=== PATIENT | female | born 2000 | race Caucasian/White ===

== ENCOUNTER 2021-02-09 15:25 | Observation (INO) | payer OTHER ==
[2021-02-09 16:19] LABS: #Monocytes 0.7 10x3/uL (0.0-1.1); #Neutrophils 14.1 10x3/uL (1.5-8.4); %Basophils 0.1 % (0.0-2.0); %Eosinophils 0.1 % (0.0-6.0); %Lymphocytes 9.3 % (18.0-47.0); %Monocytes 4.3 % (0.0-10.0); %Neutrophils 85.8 % (40.0-75.0); Hemoglobin 12.8 g/dL (12.0-15.5); Mean Corpuscular HGB CONC 33.1 g/dL (32.0-36.0); Mean Corpuscular Hemoglobin 29.8 pg (27.0-33.0); Mean Platelet Volume 10.3 fl (7.4-10.4); Platelet Count 283 10x3/uL (150-450); RBC Distribution Width 12.7 % (11.5-14.5); White Blood Cell (WBC) Count 16.4 10x3/uL (3.5-10.5)
[2021-02-09 16:26] LABS: Bilirubin Neg (Negative); Blood, Urine Negative (Negative); Clarity Clear (Clear); Glucose, Urine (Dipstick) Normal (Negative); Ketone, Urine Negative (Negative); Leukocyte Negative (Negative); Nitrite Negative (Negative); Protein, Urine (Dipstick) Negative (Neg-Trace); Specific Gravity, Urine 1.005 (1.002-1.036); Urobilinogen Normal mg/dL (Less than 2)
[2021-02-09 16:28] LABS: Pregnancy Test - Urine (BHCG) Negative (Negative); Pregu Control Bar Appear? YES (CONTROL BAR); Specific Gravity 1.005 (1.002-1.036)
[2021-02-09 16:29] LABS: Pregu Control Background? CLEAR/WHITE (CLR/WHITE)
[2021-02-09 16:30] LABS: ALT (SGPT) 13 U/L (8-55); AST (SGOT) 16 U/L (5-34); Albumin 4.4 g/dL (3.5-5.0); Alkaline Phosphatase 79 U/L (40-110); Anion Gap 12 mmol/L (10-20); BUN (Urea Nitrogen) 9 mg/dL (7.0-18.7); Bilirubin, Total 0.6 mg/dL (0.2-1.2); Calc. Creatinine Clearance 0 mL/min (70-130); Calcium 9.3 mg/dL (7.8-10.44); Carbon Dioxide 27 mmol/L (22-29); Chloride 101 mmol/L (98-107); Globulin 2.9 g/dL (2.4-3.5); Glucose 126 mg/dL (70-105); Lipase 27 U/L (8-78); Potassium 3.6 mmol/L (3.5-5.1); Protein, Total 7.3 g/dL (6.0-8.3); Sodium 136 mmol/L (136-145)
[2021-02-09] MEDS ORDERED: Ketorolac Tromethamine 30 MG/ML VIAL ONE (17:18)
[2021-02-09] MEDS ORDERED: Fentanyl 100 MCG/2 ML VIAL ONE (18:01)
[2021-02-09] MEDS ORDERED: Ondansetron PF 4 MG/2 ML Vial IVP PRN (19:30)
[2021-02-09] MEDS ORDERED: Ondansetron ODT 4 MG TAB PO PRN (19:31)
[2021-02-09 19:34] VITALS: BMI 18.8
[2021-02-09] MEDS: Sodium Chloride 0.9% 1,000 ML IV SCH (20:03)
[2021-02-09 20:10] LABS: SARS-CoV-2 NAA Rapid Test Not Detected (NotDetected)
[2021-02-09] MEDS: Morphine 4 MG/ML VIAL SLOW IVP PRN (21:44)
[2021-02-10] MEDS: Morphine 4 MG/ML VIAL SLOW IVP PRN ×2 (00:59→04:37)
[2021-02-10] MEDS: Sodium Chloride 0.9% 1,000 ML IV SCH (06:45)
[2021-02-10] MEDS ORDERED: Dextrose 5% in Water 1,000 ML IV PRN (07:44)
[2021-02-10] MEDS ORDERED: Dextrose 50% Abboject 50 ML SYRINGE SLOW IVP PRN (07:44)
[2021-02-10] MEDS ORDERED: Ondansetron PF 4 MG/2 ML Vial IVP PRN (07:44)
[2021-02-10] MEDS ORDERED: D5 1/2 NS w/20 mEq KCL 1,000 ML IV SCH (07:45)
[2021-02-10] MEDS ORDERED: HYDROcodone/Acetaminophen 7.5/325 mg Tablet PO PRN (07:47)
[2021-02-10] MEDS ORDERED: Piperacillin/Tazobactam 3.375 GM in Sodium Chloride 0.9% 100 ML IVPB SCH ×2 (08:00→12:30)
[2021-02-10] MEDS ORDERED: HYDROmorphone 0.5 MG/0.5 ML SYRINGE SLOW IVP SCH (08:00)
[2021-02-10] MEDS ORDERED: EPINEPHrine 1 MG/ML AMP ONE (12:55)
[2021-02-10] MEDS ORDERED: Bupivacaine 0.25% HCL 30 ML VIAL ONE (12:55)
[2021-02-10] MEDS ORDERED: PROPOFOL 20 ML ONE (13:09)
[2021-02-10] MEDS ORDERED: Ketorolac Tromethamine 30 MG/ML VIAL ONE (13:10)
[2021-02-10] MEDS ORDERED: Fentanyl 100 MCG/2 ML VIAL ONE (13:10)
[2021-02-10] MEDS ORDERED: Midazolam HCl 2 mg/2 ml Vial ONE (13:10)
[2021-02-10] MEDS ORDERED: Glycopyrrolate 0.2 MG/ML 5 ML SYRINGE ONE (13:12)
[2021-02-10] MEDS ORDERED: Ondansetron PF 4 MG/2 ML Vial ONE (13:13)
[2021-02-10] MEDS ORDERED: Dexamethasone 4 mg/ml Vial ONE (13:13)
[2021-02-10] MEDS ORDERED: Lidocaine 1% PF 5 ML VIAL ONE (13:13)
[2021-02-10] MEDS ORDERED: SUGAMMADEX SODIUM 500 MG/5 ML VIAL ONE (13:40)
[2021-02-10] MEDS ORDERED: Promethazine HCl 25 MG/ML VIAL ONE (14:22)
[2021-02-10 17:41] VITALS: TEMP 98.1
[2021-02-10 17:43] VITALS: BP 102/58
== END 2021-02-10 17:22 | disposition home or self-care (01) ==
LOC: CSHERS 15:25 → CSHTELE 19:28
PROVIDERS: ADMIT Surgery; ATTEND Surgery
PROC: 0DTJ4ZZ Resection of Appendix, Percutaneous Endoscopic Approach (ICD-10-PCS; principal; 2021-02-10)
DX: K35.80 Unspecified acute appendicitis (principal); K21.9 Gastro-esophageal reflux disease without esophagitis; Z20.822 Contact with and (suspected) exposure to COVID-19; Z79.3 Long term (current) use of hormonal contraceptives
CPT/HCPCS: 74177; 80053; 81003; 81025; 83690; 85025; 88304; 96372; 96374; 96375; 96376; G0378; J0171; J0500; J1100; J1170; J1885; J2250; J2270; J2405; J2543; J2550; J2704; J3010; J3490; J7050; S0020; U0002